=== PATIENT | male | born 1995 | race Caucasian/White ===

== ENCOUNTER 2022-11-04 07:01 | Emergency (ER) | payer OTHER ==
[~2022-11-04] VITALS: Ht 190.5 cm; Wt 77.1 kg
[2022-11-04 07:03] VITALS: BP 129/78
[2022-11-04] MEDS ORDERED: OXYM15SP2 (08:07)
[2022-11-04] MEDS ORDERED: BENZ200C70 PO (08:07)
[2022-11-04] MEDS ORDERED: MUCI600T31 PO (08:07)
[2022-11-04 09:03] LABS: RSV AMPLIFICATION NEGATIVE (NEGATIVE)
== END 2022-11-04 08:55 | disposition home or self-care (01) ==
LOC: M ED 07:01
DX: J06.9 Acute upper respiratory infection, unspecified (principal); B34.9 Viral infection, unspecified